=== PATIENT | female | born 1965 | race Caucasian/White ===

== ENCOUNTER 2019-03-30 09:55 | Day surgery (SDC) | payer OTHER ==
[~2019-03-30] VITALS: Ht 170.2 cm; Wt 113.0 kg
[~2019-03-30 09:55] MED LIST: LISINOPRIL
[2019-03-30 11:15] VITALS: Ht 170.2 cm; Wt 113.0 kg
[2019-03-30 11:16] VITALS: BP 120/68; PULSE 59; RESP 18
[2019-03-30 12:05] VITALS: BP 134/75; PULSE 56; RESP 18
== END 2019-03-30 16:33 | disposition home or self-care (01) ==
LOC: GIL 09:55
PROVIDERS: ATTEND Internal Medicine Gastroenterology
DX: Z12.11 Encounter for screening for malignant neoplasm of colon (principal); D12.5 Benign neoplasm of sigmoid colon; K64.8 Other hemorrhoids; I10 Essential (primary) hypertension
CPT/HCPCS: 45385; 88305; Z7610